=== PATIENT | female | born 1980 | race Caucasian/White ===

== ENCOUNTER 2016-10-14 11:53 | Emergency (ER) | payer OTHER ==
[~2016-10-14] VITALS: Ht 182.9 cm; Wt 70.3 kg
[2016-10-14 12:17] LABS: ABSOLUTE BASOPHIL COUNT 0 /CUMM (0.0-0.2); ABSOLUTE EOSINOPHIL COUNT 0.1 /CUMM (0.0-0.7); ABSOLUTE GRANULOCYTE CT 5.7 /CUMM (1.4-6.5); ABSOLUTE LYMPH COUNT 1.1 /CUMM (1.2-3.4); ABSOLUTE MONOCYTE COUNT 0.3 /CUMM (0.10-0.60); BASOPHIL % 0.5 % (0.0-2.0); EOSINOPHIL % 0.8 % (0-5); GRANULOCYTE % 78.9 % (42.2-75.2); MEAN CORPUSCULAR HGB 32.8 PG (27.0-31.0); MEAN CORPUSCULAR HGB CONC 34.5 G/DL (33.0-37.0); MEAN CORPUSCULAR VOLUME 95.2 FL (81.0-99.0); MEAN PLATELET VOLUME 7.2 FL (7.4-10.4); PLATELET COUNT 224 /CUMM (130-400); RBC DISTRIBUTION WIDTH 13.7 % (11.5-14.5); WHITE BLOOD CELL COUNT 7.3 /CUMM (4.8-10.8)
[2016-10-14] MEDS ORDERED: MELOXICAM15 M1 PO (12:52)
[2016-10-14] MEDS ORDERED: CYCLOBENZAPRINE10 M1 PO (12:52)
--- NOTE | 2016-10-14 12:52 | ED GENERAL ADULT ---
History of Present Illness General Chief Complaint: Syncope and Near-Syncope Stated Complaint: NEAR SYNCOPE Source: patient Exam Limitations: no limitations Vital Signs & Intake/Output Vital Signs & Intake/Output Vital Signs Date Time Temp Pulse Resp B/P Pulse O2 O2 Flow FiO2 Ox Delivery Rate 10/14 1710 97.4 60 19 108/60 100 Room Air 10/14 1605 97.7 10/14 1545 63 18 110/60 100 Room Air 10/14 1338 97.4 64 16 110/62 100 Room Air 10/14 1302 100 10/14 1159 98.9 83 18 139/76 99 Room Air Allergies Coded Allergies: No Known Allergies (10/14/16) Reconcile Medications Cyclobenzaprine HCl 10 MG TABLET 1 TAB PO QPM SPASMS (Reported) Meloxicam 15 MG TABLET 1 TAB PO DAILY PAIN (Reported) Oxycodone HCl/Acetaminophen (Oxycodone-Acetaminophen 5-325) 5 MG-325 MG TABLET 1 TAB PO BIDP PRN PAIN (Reported) Triage Note: 36 Y/O FEMALE C/O SYNCOPE THIS AM; STATES SHE HAS BEEN HAVING BACK PAIN X 2 WEEKS AND HAS BEEN TAKING FLEXERIL, MOBIC AND PERCOCET WITH SOME RELIEF. THIS AM, "HAD A SHARP PAIN" IN LOWER BACK WHICH CAUSED DIZZINESS AND SYNCOPLE EPISODE. PT STATES SHE STRUCK CHIN ON GROUND - LACERATION NOTED. PT STATES SHE REMEMBERS WAKING UP AND WAS ABLE TO GET HERSELF UP. AT PRESENT, ONLY FEELS "DIZZY". Triage Nurses Notes Reviewed? yes Onset: Abrupt Duration: day(s): Timing: recent history : No Patient currently breastfeeds: No HPI: 10/14/16 2 pm 36-year-old female presents to the emergency department for syncope. The patient states she has a history of severe low back pain. She says she saw her primary care doctor and was started on Mobic, Flexeril, and Percocet. He says that she took the medicines yesterday , Percocet and Flexeril last night ; Mobic this morning. She says she woke up and did a few things and then after sitting up from a bending position she felt dizzy passed out and struck her chin on the floor. She denies neck pain, headache or other complaints she does have a 1 inch laceration on her chin. No neck tenderness. No chest pain or shortness of breath. She does admit to ongoing low back pain. The onset of the symptoms of an abrupt, the duration has been days, the severity is significant as her symptoms required her to come to the emergency department for care. She also admits to a prior history of syncope years ago when she was younger Past History Travel History Traveled to [place] past 21 day No Medical History Any Pertinent Medical History? see below for history Neurological: NONE EENT: NONE Cardiovascular: NONE, syncope Respiratory: NONE Gastrointestinal: NONE Renal: NONE Musculoskeletal: NONE Psychiatric: NONE Endocrine: NONE Blood Disorders: NONE Cancer(s): NONE EMR IMPLEMENTATION SPECIALIST/Reproductive: NONE Surgical History Surgical History: non-contributory Psychosocial History What is your primary language Mauritanian Tobacco Use: Never used Family History Hx Contributory? No Review of Systems Review of Systems Constitutional: Denies: fever. EENTM: Denies: visual changes. Respiratory: Denies: short of breath. Cardiovascular: Denies: chest pain. GI: Denies: abdominal pain. Genitourinary: Reports: no symptoms. Musculoskeletal: Reports: back pain. Skin: Reports: no symptoms. Neurological/Psychological: Denies: headache. Hematologic/Endocrine: Reports: bleeding. Physical Exam Physical Exam General Appearance: well developed/nourished, alert, awake, anxious, mild distress Head: normal appearance, one-inch mental laceration Eyes: Bilateral: normal appearance, PERRL, EOMI. Ears, Nose, Throat: normal pharynx, normal ENT inspection Neck: nontender, Nexus criteria negative Respiratory: normal breath sounds, chest non-tender, no respiratory distress Cardiovascular: regular rate/rhythm Peripheral Pulses: 4+ radial (R), 4+ radial (L) Gastrointestinal: soft, non-tender Back: decreased range of motion Extremities: normal inspection Neurologic/Psych: no motor/sensory deficits, awake, alert, oriented x 3 Skin: intact, normal color, warm/dry Comments: Physical exam is unremarkable other than lumbar tenderness with positive straight leg raising test, no abdominal tenderness. Lower extremity neurological exam is normal She will follow-up with her doctor this week return to the emergency department if worse. Core Measures ACS in differential dx? No CVA/TIA Diagnosis: No Severe Sepsis Present: No Septic Shock Present: No Progress Differential Diagnoses I considered the following diagnoses in my evaluation of the patient: [Anemia, dysrhythmia, subarachnoid hemorrhage, pulmonary embolism, ectopic , vasovagal syncope, disc herniation, adverse drug reaction] Plan of Care: Orders Procedure Date/time Status URINE 10/14 1199 Complete URINALYSIS 10/14 1199 Complete TROPONIN LEVEL 10/14 1199 Complete COMPREHENSIVE METABOLIC PANEL 10/14 1199 Complete CBC WITHOUT DIFFERENTIAL 10/14 1199 Complete EKG 10/14 1199 Active Laboratory Tests 10/14/16 1235: Urine Color YEL, Urine Clarity CLEAR, Urine pH 6.0, Ur Specific [place] 1.025, Urine Protein NEG, Urine Ketones NEG, Urine Nitrite NEG, Urine Bilirubin NEG, Urine Urobilinogen 0.2, Ur Leukocyte Esterase NEG, Ur Microscopic EXAM NOT REQUIRED, Urine Hemoglobin NEG, Urine Glucose NEG, Urine Test NEGATIVE 10/14/16 1209: Anion Gap 9, Estimated GFR > 60, BUN/Creatinine Ratio 22.5, Glucose 86, Calcium 9.0, Total Bilirubin 0.3, AST 20, ALT 24, Alkaline Phosphatase 32, Troponin I < 0.01, Total Protein 6.5, Albumin 3.9, Globulin 2.6, Albumin/Globulin Ratio 1.5, CBC w Diff NO MAN DIFF REQ, RBC 4.10 L, MCV 95.2, MCH 32.8 H, RDW 13.7, MPV 7.2 L, Gran % 78.9 H, Lymphocytes % 15.1 L, Monocytes % 4.7, Eosinophils % 0.8, Basophils % 0.5, Absolute Granulocytes 5.7, Absolute Lymphocytes 1.1 L, Absolute Monocytes 0.3, Absolute Eosinophils 0.1, Absolute Basophils 0, PUBS MCHC 34.5 Initial ED EKG: NSR Departure Departure Disposition: HOME OR SELF CARE Condition: Stable Clinical Impression Primary Impression: Syncope Secondary Impressions: Back pain, Laceration Referrals: KANE LAROSE,ALEXX Thrasher (PCP/Family) Departure Forms: Customer Survey General Discharge Information Comments 10/14/16 4 PM The patient remains asymptomatic. EKG labs unremarkable. Her chin laceration was sutured with 5 5-0 nylon sutures. Bacitracin and sterile dressing were applied. She will follow-up in 5 days for suture removal. Follow-up with her primary care doctor this week for syncope. She will only take Percocet if absolutely necessary and continue the Mobic and Flexeril as needed for pain PATIENT: DASHAWN MOTA PRESENT AGE: 36 PATIENT ACCOUNT NO: [id number] : 80 LOCATION: [facility] ORDERING PHYSICIAN: NIKITA ANDRES DO SERVICE DATE: 10/14/16 EXAM TYPE: RAD - XRY-LUMBOSACRAL SPINE AP & LAT EXAMINATION: XR LUMBOSACRAL SPINE CLINICAL INFORMATION: Severe back pain. COMPARISON: None TECHNIQUE: AP and lateral views of the lumbosacral spine were obtained. FINDINGS: The vertebral bodies and posterior elements are normal. The disc spaces are preserved and the vertebral alignment is normal. The paraspinal soft tissues are normal. IMPRESSION: Normal lumbar spine. DICTATED BY: WILLY HODGES MD DATE/TIME DICTATED:10/14/161552 HARP REPAIRER:SUKHDEV DATE/TIME TRANSCRIBED:10/14/161552 CONFIDENTIAL, DO NOT COPY WITHOUT APPROPRIATE AUTHORIZATION. <Electronically signed in Other Vendor System> SIGNED BY: WILLY HODGES MD 10/14/161558 CT of the head IMPRESSION: No acute intracranial pathology. DICTATED BY: MARY CHENG MD DATE/TIME DICTATED:10/14/161656 HARP REPAIRER:SUKHDEV DATE/TIME TRANSCRIBED:10/14/161656 CONFIDENTIAL, DO NOT COPY WITHOUT APPROPRIATE AUTHORIZATION. <Electronically signed in Other Vendor System> SIGNED BY: MARY CHENG MD 10/14/16 3773 Critical Care Note Critical Care Note Critical Care Time: 30-74 min
[2016-10-14] MEDS ORDERED: OXYCODONE-ACET1 EACH PO (12:53)
--- NOTE | 2016-10-14 15:59 | RADIOLOGY REPORT ---
EXAMINATION: XR LUMBOSACRAL SPINE CLINICAL INFORMATION: Severe back pain. COMPARISON: None TECHNIQUE: AP and lateral views of the lumbosacral spine were obtained. FINDINGS: The vertebral bodies and posterior elements are normal. The disc spaces are preserved and the vertebral alignment is normal. The paraspinal soft tissues are normal. IMPRESSION: Normal lumbar spine.
--- NOTE | 2016-10-14 17:03 | CT SCAN REPORT ---
EXAMINATION: CT HEAD WITHOUT CONTRAST CLINICAL INFORMATION: Head trauma. COMPARISON: 08/11/2008 TECHNIQUE: Contiguous axial imaging was performed from the skull base to vertex without intravenous administration of contrast. DLP: 529 mGy-cm FINDINGS: There is no evidence of acute intracranial hemorrhage or territorial infarction. No abnormal mass effect or midline shift is seen. [place] to white matter differentiation is well preserved. No extra-axial fluid collections are identified. The ventricles are normal in size. There is no abnormal attenuation within the brain parenchyma. The osseous structures and soft tissues are normal. The middle ear cavities, mastoid air cells and visualized portions of the paranasal sinuses are well aerated. IMPRESSION: No acute intracranial pathology.
[2016-10-14 17:10] VITALS: BP 108/60
== END 2016-10-14 17:31 ==
LOC: ERH 11:53
PROVIDERS: Emergency Medicine
DX: S01.81XA Laceration without foreign body of other part of head, initial encounter (principal); M54.5 Low back pain; R55 Syncope and collapse; W19.XXXA Unspecified fall, initial encounter
CPT/HCPCS: 72100; 81003; 81025; 93005; 93010

== ENCOUNTER 2016-10-16 10:51 | Emergency (ER) | payer OTHER ==
[~2016-10-16] VITALS: Ht 182.9 cm; Wt 70.3 kg
[~2016-10-16 10:51] MED LIST: CYCLOBENZAPRINE10 M1 PO; MELOXICAM15 M1 PO; OXYCODONE-ACET1 EACH PO
[2016-10-16 13:09] LABS: ABSOLUTE BASOPHIL COUNT 0 /CUMM (0.0-0.2); ABSOLUTE EOSINOPHIL COUNT 0 /CUMM (0.0-0.7); ABSOLUTE GRANULOCYTE CT 5.8 /CUMM (1.4-6.5); ABSOLUTE LYMPH COUNT 0.8 /CUMM (1.2-3.4); ABSOLUTE MONOCYTE COUNT 0.2 /CUMM (0.10-0.60); BASOPHIL % 0.3 % (0.0-2.0); EOSINOPHIL % 0.2 % (0-5); GRANULOCYTE % 84.5 % (42.2-75.2); HEMATOCRIT 41.8 % (37-47); MEAN CORPUSCULAR HGB 32.4 PG (27.0-31.0); MEAN CORPUSCULAR HGB CONC 34.5 G/DL (33.0-37.0); MEAN CORPUSCULAR VOLUME 93.7 FL (81.0-99.0); MEAN PLATELET VOLUME 7.2 FL (7.4-10.4); PLATELET COUNT 213 /CUMM (130-400); RBC DISTRIBUTION WIDTH 13.8 % (11.5-14.5); RED BLOOD CELL CT 4.46 /CUMM (4.20-5.40); WHITE BLOOD CELL COUNT 6.8 /CUMM (4.8-10.8)
--- NOTE | 2016-10-16 13:42 | MRI REPORT ---
EXAMINATION: MR LUMBAR SPINE WITHOUT CONTRAST CLINICAL INFORMATION: Severe low back pain. COMPARISON: None TECHNIQUE: MRI of the lumbar spine without contrast was obtained using routine sequences. FINDINGS: VERTEBRAL BODIES AND PARASPINAL STRUCTURES: The marrow signal is homogeneous. There are no compression fractures or subluxations. There is minimal disc degeneration at the L3-L4 and L4-L5 levels. The paraspinal soft tissues appear normal. The imaged bony pelvis is unremarkable. CONUS MEDULLARIS AND CAUDA EQUINA: Normal, terminating at the level of L1. No lower cord signal abnormality is seen. The cauda equina nerve roots are normal. SPINAL LEVELS: L1-L2: No disc pathology. Patent central canal and foramina. L2-L3: No disc abnormality. No central canal stenosis or foraminal narrowing. L3-L4: Minimal disc bulge and mild facet arthropathy. No central canal stenosis or foraminal narrowing. L4-L5: Very mild disc bulge. No central canal stenosis or foraminal narrowing. L5-S1: Minimal posterior annular bulge. Mild to moderate facet arthropathy. No central canal stenosis or foraminal narrowing. IMPRESSION: Very mild spondylitic changes. No focal disc protrusion, central canal stenosis, or foraminal narrowing.
--- NOTE | 2016-10-16 15:59 | CT SCAN REPORT ---
EXAMINATION: CT ANGIOGRAM OF THE CHEST WITH AND WITHOUT CONTRAST (CT PULMONARY ANGIOGRAM FOR PE) CLINICAL INFORMATION: Syncope. Elevated d-dimer. COMPARISON: None. TECHNIQUE: Prior to contrast administration, noncontrast localization images were obtained. Subsequently, multidetector volumetric imaging was performed from the thoracic inlet to below the diaphragms following the administration of 95 mL Optiray 350 intravenous contrast. No contrast reaction reported. Sagittal, coronal, and MIP oblique sagittal reformatted images were obtained on the CT workstation, uploaded to PACS, and reviewed. Total exam dose-length product 238 mGy-cm. FINDINGS: QUALITY OF STUDY/CONTRAST BOLUS: Adequate contrast opacification of the pulmonary arterial vasculature. PULMONARY ARTERIES: No evidence of pulmonary embolism to the level of the subsegmental pulmonary arteries. No large central pulmonary emboli. THORACIC AORTA: No aneurysm or dissection. LUNG: The lungs are well-expanded and clear, without focal airspace consolidation. No suspicious pulmonary nodules or masses are identified. The central airways are patent, without endobronchial obstructing lesions. PLEURA: No pleural effusion or pneumothorax. MEDIASTINUM: Normal heart size. No pericardial effusion. No hilar or mediastinal lymphadenopathy. No evidence of septal bowing or right heart strain. CHEST WALL/AXILLA: No axillary or internal mammary lymphadenopathy. OSSEOUS STRUCTURES: No acute or suspicious osseous abnormality. UPPER ABDOMEN: No acute findings within the upper abdomen. No reflux of contrast into the hepatic veins to suggest elevated right heart pressures. IMPRESSION: Adequate contrast opacification of the pulmonary arterial vasculature, without evidence of pulmonary embolism. VTE: Negative.
--- NOTE | 2016-10-16 17:09 | ED SYNCOPE COMPLAINT ---
History of Present Illness General Chief Complaint: Syncope and Near-Syncope Stated Complaint: SYNCOPE Source: patient Exam Limitations: no limitations Vital Signs & Intake/Output Vital Signs & Intake/Output Vital Signs Date Time Temp Pulse Resp B/P Pulse O2 O2 Flow FiO2 Ox Delivery Rate 10/16 1756 97.0 63 20 107/57 98 Room Air 10/16 1532 97.8 64 16 120/55 99 Room Air 10/16 1325 97.0 62 16 114/57 99 Room Air 10/16 1319 98 Room Air 10/16 1100 96.6 72 16 94/59 95 Room Air Allergies Coded Allergies: No Known Allergies (10/14/16) Reconcile Medications Cyclobenzaprine HCl 10 MG TABLET 1 TAB PO QPM SPASMS (Reported) Hydrocodone/Acetaminophen (Hydrocodon-Acetaminophen 5-325) 5 MG-325 MG TABLET 1-2 TAB PO Q4-6 PRN PRN PAIN Meloxicam 15 MG TABLET 1 TAB PO DAILY PAIN (Reported) Methylprednisolone. (Medrol) 4 MG TAB.DS.PK 1 DP PO AD BACK PAIN 6 on day 1 then reduce by one tablet daily until gone Oxycodone HCl/Acetaminophen (Oxycodone-Acetaminophen 5-325) 5 MG-325 MG TABLET 1 TAB PO BIDP PRN PAIN (Reported) Triage Note: PT HAS BEEN HAVING SHARP PAIN IN HER BACK FOR THE PAST TWO WEEKS. PT GOT DIZZY AND PASSED OUT TODAY. Triage Nurses Notes Reviewed? yes Timing: recent history Precipitating Factors: none Loss of Consciousness: brief (seconds) (5) : No Patient currently breastfeeds: No HPI: 36-year-old female comes into emergency room with multiple complaints. Patient was seen here 2 days ago for near syncopal episode as well as low back pain. Patient reports that she has had persistent dizziness and near syncopal episodes since then but is only associated when she has the pain in her lower back that radiates down to her right leg. Patient also reports that today she went to see her primary care doctor who gave her an injection in her lower back about 30 seconds later she had a stable episode that lasted for about 5 seconds according to the . Denies any chest pain shortness of breath. Denies any fever chills vomiting. She is on control. Nothing seems to make the symptoms better or worse. Denies any other associated symptoms at this time. Patient reports that she's had some intermittent low back pain problems for many years but has never been serious. Patient reports that recently she has had increased pain in the last couple weeks. (GABRIELA BALTAZAR) Past History Travel History Traveled to [place] past 21 day No Medical History Any Pertinent Medical History? 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 No (GABRIELA BALTAZAR) Review of Systems Review of Systems Constitutional: Reports: no symptoms. EENTM: Reports: no symptoms. Respiratory: Reports: no symptoms. Cardiovascular: Reports: see HPI. GI: Reports: no symptoms. Genitourinary: Reports: no symptoms. Musculoskeletal: Reports: see HPI. Skin: Reports: no symptoms. Neurological/Psychological: Reports: no symptoms. All Other Systems: Reviewed and Negative (GABRIELA BALTAZAR) Physical Exam Physical Exam General Appearance: well developed/nourished, no apparent distress, alert, awake Head: atraumatic, normal appearance Eyes: Bilateral: normal appearance, PERRL, EOMI. Ears, Nose, Throat: normal pharynx, normal ENT inspection, hearing grossly normal Neck: normal inspection, supple, full range of motion Respiratory: normal breath sounds, chest non-tender, no respiratory distress Cardiovascular: regular rate/rhythm Gastrointestinal: soft Back: normal inspection, normal range of motion, Paraspinal tenderness Extremities: normal inspection, normal range of motion Psychiatric: awake, alert, oriented x 3 Cranial Nerves: normal hearing, normal speech, PERRL Coordination/Gait: normal finger to nose, normal gait Motor/Sensory: no motor/sensory deficits Skin: intact, normal color Comments: 5 out of 5 strength in the lower extremity, normal dorsiflexion of great toe bilaterally, gross sensation is intact, Core Measures ACS in differential dx? No CVA/TIA Diagnosis: No Severe Sepsis Present: No Septic Shock Present: No (GABRIELA BALTAZAR) Progress Differential Diagnosis: AMI, aortic dissection, aortic valve, drug induced syncope, hyperventilation, orthostatic syncope, other valvular disease, pacemaker malfunction, pericardial tamponade, pulmonary embolus, seizure, sick sinus syndrome, subarachnoid hem., TIA/CVA, vasodepressor syncope, ventricular tach/fib, lumbar radiculopathy, herniated disc, spinal stenosis, Plan of Care: Orders Procedure Date/time Status TROPONIN LEVEL 10/16 1250 Complete Telemetry/Hog Raiser 10/16 113 Active URINE DRUGS OF ABUSE 10/16 113 Active URINE 10/16 113 Complete URINALYSIS 10/16 1137 Complete D-DIMER 10/16 113 Complete COMPREHENSIVE METABOLIC PANEL 10/16 1123 Complete CBC WITHOUT DIFFERENTIAL 10/16 112 Complete EKG 10/16 1054 Active Laboratory Tests 10/16/16 1448: Urine Opiates Screen Pending, Methadone Screen Pending, Barbiturate Screen Pending, Ur Phencyclidine Scrn Pending, Amphetamines Screen Pending, U Benzodiazepines Scrn Pending, Urine Cocaine Screen Pending, Urine Cannabis Screen Pending, Urinalysis LIGHT H, Urine Color YEL, Urine Clarity HAZY H, Urine pH 6.5, Ur Specific [place] 1.015, Urine Protein TRACE H, Urine Ketones NEG, Urine Nitrite NEG, Urine Bilirubin NEG, Urine Urobilinogen 0.2, Ur Leukocyte Esterase NEG, Ur Microscopic SEDIMENT EXAMINED, Urine RBC 1-3, Urine WBC 10-15 H, Ur Epithelial Cells MOD H, Urine Mucus RARE, Urine Hemoglobin NEG , Urine Glucose NEG, Urine Test NEGATIVE 10/16/16 1250: Anion Gap 12, Estimated GFR > 60, BUN/Creatinine Ratio 15.0, Glucose 93, Calcium 9.8, Total Bilirubin 0.6, AST 26, ALT 31, Alkaline Phosphatase 44, Troponin I < 0.01, Total Protein 7.8, Albumin 4.6, Globulin 3.2, Albumin/Globulin Ratio 1.4, D-Dimer 578 H, CBC w Diff NO MAN DIFF REQ, RBC 4.46, MCV 93.7, MCH 32.4 H, RDW 13.8, MPV 7.2 L, Gran % 84.5 H, Lymphocytes % 11.4 L, Monocytes % 3.6, Eosinophils % 0.2, Basophils % 0.3, Absolute Granulocytes 5.8, Absolute Lymphocytes 0.8 L, Absolute Monocytes 0.2, Absolute Eosinophils 0, Absolute Basophils 0, PUBS MCHC 34.5 10/16/16 1134: Troponin I Cancelled Diagnostic Imaging: Viewed by Me: CT Scan, MRI. Discussed w/RAD: CT Scan, MRI. Radiology Impression: SERVICE DATE: 10/16/16 EXAM TYPE: MRI - MRI-LUMBAR SPINE EXAMINATION: MR LUMBAR SPINE WITHOUT CONTRAST CLINICAL INFORMATION: Severe low back pain. COMPARISON: None TECHNIQUE: MRI of the lumbar spine without contrast was obtained using routine sequences. FINDINGS: VERTEBRAL BODIES AND PARASPINAL STRUCTURES: The marrow signal is homogeneous. There are no compression fractures or subluxations. There is minimal disc degeneration at the L3-L4 and L4-L5 levels. The paraspinal soft tissues appear normal. The imaged bony pelvis is unremarkable. CONUS MEDULLARIS AND CAUDA EQUINA: Normal, terminating at the level of L1. No lower cord signal abnormality is seen. The cauda equina nerve roots are normal. SPINAL LEVELS: L1-L2: No disc pathology. Patent central canal and foramina. L2-L3: No disc abnormality. No central canal stenosis or foraminal narrowing. L3-L4: Minimal disc bulge and mild facet arthropathy. No central canal stenosis or foraminal narrowing. L4-L5: Very mild disc bulge. No central canal stenosis or foraminal narrowing. L5-S1: Minimal posterior annular bulge. Mild to moderate facet arthropathy. No central canal stenosis or foraminal narrowing. IMPRESSION: Very mild spondylitic changes. No focal disc protrusion, central canal stenosis, or foraminal narrowing., EXAM TYPE: CAT - CTA CHEST-PULMONARY EMBOLISM EXAMINATION: CT ANGIOGRAM OF THE CHEST WITH AND WITHOUT CONTRAST (CT PULMONARY ANGIOGRAM FOR PE) CLINICAL INFORMATION: Syncope. Elevated d-dimer. COMPARISON: None. TECHNIQUE: Prior to contrast administration, noncontrast localization images were obtained. Subsequently, multidetector volumetric imaging was performed from the thoracic inlet to below the diaphragms following the administration of 95 mL Optiray 350 intravenous contrast. No contrast reaction reported. Sagittal, coronal, and MIP oblique sagittal reformatted images were obtained on the CT workstation, uploaded to PACS, and reviewed. Total exam dose-length product 238 mGy-cm. FINDINGS: QUALITY OF STUDY/CONTRAST BOLUS: Adequate contrast opacification of the pulmonary arterial vasculature. PULMONARY ARTERIES: No evidence of pulmonary embolism to the level of the subsegmental pulmonary arteries. No large central pulmonary emboli. THORACIC AORTA: No aneurysm or dissection. LUNG: The lungs are well- expanded and clear, without focal airspace consolidation. No suspicious pulmonary nodules or masses are identified. The central airways are patent, without endobronchial obstructing lesions. PLEURA: No pleural effusion or pneumothorax. MEDIASTINUM: Normal heart size. No pericardial effusion. No hilar or mediastinal lymphadenopathy. No evidence of septal bowing or right heart strain. CHEST WALL/AXILLA: No axillary or internal mammary lymphadenopathy. OSSEOUS STRUCTURES: No acute or suspicious osseous abnormality. UPPER ABDOMEN: No acute findings within the upper abdomen. No reflux of contrast into the hepatic veins to suggest elevated right heart pressures. IMPRESSION: Adequate contrast opacification of the pulmonary arterial vasculature, without evidence of pulmonary embolism. VTE: Negative. DICTATED BY: TEODORO BOATENG MD DATE/TIME DICTATED:10/16/161547 K9 HANDLER:SUKHDEV DATE/TIME TRANSCRIBED:1547 Initial ED EKG: normal intervals, normal p-waves, normal QRS complex, normal sinus rhythm, rate (54) Comments: 10/16/2016 6:21:55 PM Patient clinically looks well. Nontoxic-appearing. In no apparent distress. Low back pain is most consistent with lumbar radiculopathy. I feel that the patient's syncopal episode is likely related to vagal response from the injections in her lower back. Spoke with Dr. Ramos from cardiology. He will follow up outpatient for Holter monitor for patient. Patient seen by Dr. ventura. Reevaluated multiple times. No further syncopal episodes. Clinically looks well upon discharge. No chest pain or shortness of breath. Patient understands and agrees with plan of care. (JESSICA DE ANDA,GABRIELA) Departure Departure Disposition: HOME OR SELF CARE Condition: Stable Clinical Impression Primary Impression: Syncope Secondary Impressions: Lumbar radiculopathy Referrals: KANE LAROSE,ALEXX Thrasher (PCP/Family) EVA LAROSE PhD,SHERRY Rockwell Additional Instructions: Follow-up with property and supply officer provided. Take Vicodin as needed for breakthrough pain of lower back. Take Medrol Dosepak as prescribed. Follow-up with your primary care doctor is well. Return if any other concerns worsening symptoms. Please go over all results of today's visit with your primary care doctor. Contact your primary care doctor to let them know you were here in the emergency room. There may be nonspecific findings which may not be related to your visit today here in the emergency room but may require further evaluation and chronic monitoring by your primary care doctor. If you had a laceration today the chance of foreign body always remains. You should follow-up with your primary care doctor for recheck in 3-5 days for a wound check. If you had an x-ray done there is a chance that a fracture could have been missed on initial read and you should follow-up with your primary care doctor for repeat x-rays if symptoms persist. If your blood pressure was elevated here in the emergency room please have rechecked by her primary care doctor within the next 48 hours by your primary care doctor. If you were prescribed a narcotic here in the emergency room or any type of controlled substances you're not allowed to drive while taking this medication or operate any type of heavy machinery. Narcotics can make you feel lightheaded dizziness nausea and can cause constipation. You may need to citrus picker a stool softener. Thank you for choosing [facility] emergency room. Please return to the emergency room immediately if you have any other concerns worsening of symptoms. Departure Forms: Customer Survey General Discharge Information Prescriptions: Current Visit Scripts Methylprednisolone. (Medrol) 1 DP PO AD #1 DP 6 on day 1 then reduce by one tablet daily until gone Hydrocodone/Acetaminophen (Hydrocodon-Acetaminophen 5-325) 1-2 TAB PO Q4-6 PRN PRN PAIN #15 TAB (GABRIELA BALTAZAR) PA/PIN CLEANER Co-Sign Statement Statement: ED Attending supervision documentation- [] I saw and evaluated the patient. I have also reviewed all the pertinent lab results and diagnostic results. I agree with the findings and the plan of care as documented in the PA's/PIN CLEANER's documentation. [X] I have reviewed the ED Record and agree with the PA's/PIN CLEANER's documentation. [] Additions or exceptions (if any) to the PAs/PIN CLEANER's note and plan are summarized below: [] (JESE LAROSE,MAGED) ED Attending Observation Initial Observation Note: I have seen and personally examined DASHAWN MOTA on 10/16/16 at 1820. I agree with the current emergency department documentation. The disposition (admission or discharge) is uncertain at this time, she needs a period of observation for the following reason(s): The ED Nurse caring for this patient has been personally informed as to what the patient is being observed for. (JESSICA DE ANDA,GABRIELA)
[2016-10-16] MEDS ORDERED: MEDROL4 M2 PO (17:12)
[2016-10-16] MEDS ORDERED: HYDROCODON-ACE1 EAC2 PO (17:12)
[2016-10-16 17:56] VITALS: BP 107/57
== END 2016-10-16 18:22 ==
LOC: ERH 10:51
PROVIDERS: Physician Assistant Medical
DX: R55 Syncope and collapse (principal); M54.16 Radiculopathy, lumbar region
CPT/HCPCS: 72148; 80307; 81001; 81025; 93005; 93010

== ENCOUNTER 2016-10-20 13:30 | Emergency (ER) | payer OTHER ==
[~2016-10-20] VITALS: Ht 175.3 cm; Wt 70.3 kg
[~2016-10-20 13:30] MED LIST changes: +HYDROCODON-ACE1 EAC2 PO; +MEDROL4 M2 PO
[2016-10-20 13:37] VITALS: BP 105/69
--- NOTE | 2016-10-20 13:44 | ED ANIMAL BITE/WOUND CHECK ---
History of Present Illness General Chief Complaint: Suture Removal/Wound Recheck Stated Complaint: SUTURE REMOVAL Source: patient, old records Exam Limitations: no limitations Vital Signs & Intake/Output Vital Signs & Intake/Output Vital Signs Date Time Temp Pulse Resp B/P Pulse O2 O2 Flow FiO2 Ox Delivery Rate 10/20 1337 96.9 86 18 105/69 100 Room Air Allergies Coded Allergies: No Known Allergies (10/14/16) Reconcile Medications Cyclobenzaprine HCl 10 MG TABLET 1 TAB PO QPM SPASMS (Reported) Hydrocodone/Acetaminophen (Hydrocodon-Acetaminophen 5-325) 5 MG-325 MG TABLET 1-2 TAB PO Q4-6 PRN PRN PAIN Meloxicam 15 MG TABLET 1 TAB PO DAILY PAIN (Reported) Methylprednisolone. (Medrol) 4 MG TAB.DS.PK 1 DP PO AD BACK PAIN 6 on day 1 then reduce by one tablet daily until gone Oxycodone HCl/Acetaminophen (Oxycodone-Acetaminophen 5-325) 5 MG-325 MG TABLET 1 TAB PO BIDP PRN PAIN (Reported) Triage Note: PT TO ED FOR SUTURE REMOVAL. Triage Nurses Notes Reviewed? yes : No Patient currently breastfeeds: No HPI: Status post laceration repair to the chin on Friday, here for suture removal, has no complaints. No pain, no discharge, no redness no swelling. I reviewed her previous records (BO LOMAS) Past History Travel History Traveled to [place] past 21 day No Medical History Any Pertinent Medical History? 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 No (BO LOMAS) Review of Systems Review of Systems Constitutional: Reports: see HPI. EENTM: Reports: no symptoms. Respiratory: Reports: no symptoms. Cardiovascular: Reports: no symptoms. GI: Reports: no symptoms. Genitourinary: Reports: no symptoms. Musculoskeletal: Reports: no symptoms. Skin: Reports: no symptoms. Neurological/Psychological: Reports: no symptoms. Hematologic/Endocrine: Reports: no symptoms. Immunologic/Allergic: Reports: no symptoms. All Other Systems: Reviewed and Negative (BO LOMAS) Physical Exam Physical Exam General Appearance: well developed/nourished Comments: Well-developed well-nourished no apparent distress. HEENT: Atraumatic, extraocular motion intact Undersurface of the chin, there are [address], laceration is well- healing, no signs of infection no redness or swelling or discharge. Mild scab noted Neck: Supple, no lymphadenopathy Back: Nontender Respiratory: No respiratory distress Extremities: No edema, full range of motion Neuro: Alert and oriented x3 Psych: Mood affect normal, normal memory normal judgment. Skin: Warm and dry, no rash on exposed skin (BO LOMAS) Progress Differential Diagnosis: abscess, cellulitis, joint infection, tenosysnovitis Plan of Care: 5 sutures removed without incident to the chin, patient tolerated well without complications (BO LOMAS) Departure Departure Disposition: HOME OR SELF CARE Condition: Stable Clinical Impression Primary Impression: Visit for suture removal Referrals: ALEXX MIDDLETON MD (PCP/Family) Additional Instructions: Watch for signs of infection, redness, swelling, discharge, pain, return with any concerns Departure Forms: Customer Survey General Discharge Information (BO LOMAS) PA/PYTHON ARCHITECT Co-Sign Statement Statement: ED Attending supervision documentation- [] I saw and evaluated the patient. I have also reviewed all the pertinent lab results and diagnostic results. I agree with the findings and the plan of care as documented in the PA's/PYTHON ARCHITECT's documentation. x I have reviewed the ED Record and agree with the PA's/PYTHON ARCHITECT's documentation. [] Additions or exceptions (if any) to the PAs/PYTHON ARCHITECT's note and plan are summarized below: [] (CARRILLO LAROSE,GENI)
== END 2016-10-20 14:05 ==
LOC: ERH 13:30
DX: S01.81XD Laceration without foreign body of other part of head, subsequent encounter (principal)
CPT/HCPCS: 99281

== ENCOUNTER 2018-06-06 20:26 | Emergency (ER) | payer OTHER ==
[~2018-06-06] VITALS: Ht 182.9 cm; Wt 70.3 kg
[2018-06-06] MEDS ORDERED: EPIPEN0.3 MG/0.1 IM (22:17)
--- NOTE | 2018-06-06 22:17 | ED GENERAL ADULT ---
History of Present Illness General Chief Complaint: Animal/Insect Bite Stated Complaint: " BEE STING,RT HAND SWEELING,HIVES ALL OVER" Source: patient Exam Limitations: no limitations Vital Signs & Intake/Output Vital Signs & Intake/Output Vital Signs Date Time Temp Pulse Resp B/P B/P Pulse O2 O2 Flow FiO2 Mean Ox Delivery Rate 06/06 2234 97.0 77 18 110/66 99 06/06 2031 98.7 78 18 111/76 99 Room Air ED Intake and Output 06/07 0000 06/06 1200 Intake Total 1 Output Total Balance 1 Intake, Oral 1 Patient 155 lb Weight Weight Reported by Patient Measurement Method Allergies Coded Allergies: No Known Allergies (10/14/16) Reconcile Medications Cyclobenzaprine HCl 10 MG TABLET 1 TAB PO QPM SPASMS (Reported) Epinephrine (Epipen) 0.3 MG/0.3 ML AUTO.INJCT 1 INJ IM ONCE PRN anaphylaxis Hydrocodone/Acetaminophen (Hydrocodon-Acetaminophen 5-325) 5 MG-325 MG TABLET 1-2 TAB PO Q4-6 PRN PRN PAIN Meloxicam 15 MG TABLET 1 TAB PO DAILY PAIN (Reported) Methylprednisolone. (Medrol) 4 MG TAB.DS.PK 1 DP PO AD BACK PAIN 6 on day 1 then reduce by one tablet daily until gone Oxycodone HCl/Acetaminophen (Oxycodone-Acetaminophen 5-325) 5 MG-325 MG TABLET 1 TAB PO BIDP PRN PAIN (Reported) Triage Note: PT FROM HOME C/O OF ALLERGIC REACTION TO BEE STING AROUND 1800. PT NOTED TO HAVE RED RASH/HIVES ALL OVER BODY AND FACE. PT STATES SOB AT THIS TIME AND HER THROAT FEELS "SCRATCHY". VSS. Triage Nurses Notes Reviewed? yes Onset: Gradual Duration: hour(s): Timing: single episode today : No Patient currently breastfeeds: No HPI: 37-year-old female with no significant past medical history presenting with full body hives status post 3 bee stings 1-2 hours prior to arrival. Patient reports that [place] was stung twice on her left ankle and once on her right wrist. She has no known allergies to bees or any other insects. She subsequently had gradual onset of pruritic hives to her whole body. Has mild subjective throat tightness/scratchy sensation. Denies difficulty swallowing, tongue/lip swelling/paresthesias, chest pain, shortness of breath, nausea, vomiting, abdominal pain. She has not taken anything for symptomatic relief prior to arrival. (Randa Barillas) Past History Travel History Traveled to [place] past 21 day No Medical History Any Pertinent Medical History? 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 No (Randa Barillas) Review of Systems Review of Systems Constitutional: Reports: no symptoms. EENTM: Reports: see HPI. Respiratory: Reports: no symptoms. Cardiovascular: Reports: no symptoms. GI: Reports: no symptoms. Genitourinary: Reports: no symptoms. Musculoskeletal: Reports: no symptoms. Skin: Reports: see HPI. Neurological/Psychological: Reports: no symptoms. Hematologic/Endocrine: Reports: no symptoms. Immunologic/Allergic: Reports: no symptoms. All Other Systems: Reviewed and Negative (Randa Barillas) Physical Exam Physical Exam General Appearance: well developed/nourished, no apparent distress, alert, awake Comments: Gen.: Well-nourished, well-developed, no acute distress. Head: Normocephalic, atraumatic. Eyes: Normal inspection bilaterally Ears: Normal inspection bilaterally Nose: Normal inspection Throat: No oropharyngeal edema, no angioedema Neck: Normal inspection Lungs: clear to auscultation bilaterally, normnal breath sounds Heart: regular rate and rhythm Abdomen: soft and non-tender Extremities: Normal inspection Neurologic: alert and oriented x3, steady gait Skin: warm and dry, full body erythematous hives, no obvious puncture wounds or residual insect stingers to the ankle or wrist Psychiatric: Normal mood and affect, no apparent delusions or hallucinations, behavior appropriate Core Measures ACS in differential dx? No CVA/TIA Diagnosis: No Sepsis Present: No Sepsis Focused Exam Completed? No (Randa Barillas) Progress Differential Diagnoses I considered the following diagnoses in my evaluation of the patient: [Bee sting versus allergic reaction, low concern for anaphylaxis] Plan of Care: Current Medications Sig/Margot Start time Last Medication Dose Stop Time Status Admin Diphenhydramine HCl 50 MG ONCE ONE 06/06 2115 UNVr 06/06 (Benadryl) 06/06 Famotidine 20 MG ONCE ONE 06/06 2115 UNVr 06/06 (Pepcid) 06/06 Methylprednisolone 125 MG ONCE ONE 06/06 2115 UNVr 06/06 (Solu Medrol) 06/06 Patient reports resolution of her throat tightness after Solu-Medrol, Benadryl, and Pepcid. She has also had moderate improvement in her hives. At this time there is no evidence of anaphylaxis and she is cleared for discharge home. She will continue Benadryl every 6 hours for the next 24 hours. She was given Rx EpiPen in the event of future anaphylaxis. Counseled on supportive care and strict return precautions. Initial ED EKG: none (Randa Barillas) Departure Departure Disposition: HOME OR SELF CARE Condition: Stable Clinical Impression Primary Impression: Insect sting Secondary Impressions: Allergic reaction Referrals: Jose Luis Lr MD, V (PCP/Family) Additional Instructions: Use 25 mg of diphenhydramine/Benadryl for the next 24 hours. Follow-up with your primary care provider for reevaluation. Return to the emergency department for any new or worsening symptoms. Departure Forms: Customer Survey General Discharge Information Prescriptions: Current Visit Scripts Epinephrine (Epipen) 1 INJ IM ONCE PRN anaphylaxis #1 INJ (Randa Barillas) PA/ECONOMIC DEVELOPMENT COORDINATOR Co-Sign Statement Statement: ED Attending supervision documentation- [] I saw and evaluated the patient. I have also reviewed all the pertinent lab results and diagnostic results. I agree with the findings and the plan of care as documented in the PA's/ECONOMIC DEVELOPMENT COORDINATOR's documentation. [x] I have reviewed the ED Record and agree with the PA's/ECONOMIC DEVELOPMENT COORDINATOR's documentation. [] Additions or exceptions (if any) to the PAs/ECONOMIC DEVELOPMENT COORDINATOR's note and plan are summarized below: [] (Jozef LAROSE,Corrine) Critical Care Note Critical Care Note Critical Care Time: non-applicable (Randa Barillas)
[2018-06-06 22:34] VITALS: BP 110/66
== END 2018-06-06 22:35 ==
LOC: ERH 20:26
DX: T63.441A Toxic effect of venom of bees, accidental (unintentional), initial encounter (principal); L50.9 Urticaria, unspecified; X58.XXXA Exposure to other specified factors, initial encounter; Y93.01 Activity, walking, marching and hiking; Y92.821 Forest as the place of occurrence of the external cause
CPT/HCPCS: 96374; 96375; J1200; J2930